=== PATIENT | male | born 1990 | race Caucasian/White ===

== ENCOUNTER 2019-08-18 23:29 | Emergency (ER) | payer BC ==
[2019-08-18 23:36] VITALS: RESP 18; TEMP 97.8
[2019-08-18] MEDS ORDERED: Acetaminophen-Codeine 300-30mg TAB PO STA (23:49)
[2019-08-18] MEDS ORDERED: CYCLOBENZAPRINE 10 MG TAB PO STA (23:49)
[2019-08-18] MEDS ORDERED: CYCLOBENZAPRINE 10MG STARTER 3 TAB BTL PO STA (23:49)
[2019-08-18] MEDS ORDERED: ACET/COD 300 MG/30 MG STARTER PACK 6 TAB BTL PO STA (23:49)
--- NOTE | 2019-08-19 00:08 | XR ---
EXAMINATION TYPE: XR cervical spine comp DATE OF EXAM: 08/19/2019 COMPARISON: NONE HISTORY: Neck pain TECHNIQUE: 5 views FINDINGS: Cervical vertebra have normal alignment. There is mild narrowing at C5-6 disc space. Employee Counselor ior elements are intact. Atlantoaxial facet joint is normal. There are no cervical ribs. Neuroforamin a are widely patent. IMPRESSION: Mild degenerative disc changes C5-6. No fracture seen.
--- NOTE | 2019-08-19 00:30 | ED ---
General Adult HPI - General Chief complaint: Neck Pain/Injury Stated complaint: Neck Pain Time Seen by Provider: 08/18/19 23:38 Source: patient, RN notes reviewed, old records reviewed Mode of arrival: ambulatory Limitations: no limitations - History of Present Illness Initial comments: 29-year-old male patient with seafood approximately 2 weeks of right paracervical neck pain. Patient reports that he woke up after sleeping in his right paracervical neck region was tight and painful.. Reports it has been painful since. He describes on the right side. Denies any midline pain. Denies any falls or trauma. Denies any fevers or chills. Does report some muscle spasm and tightness. Denies any radiation. Reports he has some local paresthesias at the site of discomfort but denies any paresthesias going down arms. Denies any weakness. Systemic: Pt denies fatigue, fever/chills, rash. Pt denies weakness, night sweats, weight loss. Neuro: Pt denies headache, visual disturbances, syncope or pre-syncope. HEENT: Pt denies ocular discharge or irritation, otalgia, rhinorrhea, pharyngitis or notable lymphadenopathy. Cardiopulmonary: Pt denies chest pain, SOB, heart palpitations, dyspnea on exertion. Abdominal/GI: Pt denies abdominal pain, n/v/d. : Pt denies dysuria, burning w/ urination, frequency/urgency. Denies new onset urinary or bowel incontinence. MSK: Pt denies myalgia, loss of strength or function in extremities. Neuro: Pt denies new onset weakness. - Related Data Previous Rx's Medication Instructions Recorded Cyclobenzaprine [Flexeril] 1 - 2 tab PO TID #20 tablet 08/19/19 Allergies Allergy/AdvReac Type Severity Reaction Status Date / Time No Known Allergies Allergy Verified 08/18/19 23:36 Review of Systems ROS Statement: Those systems with pertinent positive or pertinent negative responses have been documented in the HPI. ROS Other: All systems not noted in ROS Statement are negative. Past Medical History Past Medical History: No Reported History History of Any Multi-Drug Resistant Organisms: None Reported Past Surgical History: No Surgical Hx Reported Past Psychological History: Depression Smoking Status: Former smoker Past Alcohol Use History: None Reported Past Drug Use History: Marijuana General Exam - General Exam Comments Initial Comments: Constitutional: NAD, AOX3, Pt has pleasant affect. HEENT: NC/AT, trachea midline, neck supple, no lymphadenopathy. Posterior pharynx non erythematous, without exudates. External ears appear normal, without discharge. Mucous membranes moist. Eyes PERRLA, EOM intact. There is no scleral icterus. No pallor noted. Cardiopulmonary: RRR, no murmurs, rubs or gallops, no JVD noted. Lungs CTAB in anterior and posterior lang. No peripheral edema. Abdominal exam: Abdomen soft and non-distended. Abdomen non-tender to palpation in all 4 quadrants. Bowel sounds active in LLQ. No hepatosplenomegaly. No ecchymosis Neuro: CN II-XII intact. No nuchal rigidity. No raccon eyes, no mckinney sign, no hemotympanum. No midline cervical spinal tenderness. Right paracervical region mildly tender, no skin changes. Kernig's and Brudzinski's negative. MSK: No posterior calf tenderness bilaterally, homans sign negative bilaterally. Posterior tibialis and radial pulse +2 bilaterally. Sensation intact in upper and lower extremities. Full active ROM in upper and lower extremities, 5/5 stregnth. Limitations: no limitations Course Vital Signs 08/18/19 23:33 Temperature 97.8 F Pulse Rate 86 Respiratory 18 Rate Blood Pressure 118/81 O2 Sat by Pulse 98 Oximetry Medical Decision Making - Medical Decision Making 29-year-old male patient with seafood approximately 2 weeks of right paracervical neck pain. Patient reports that he woke up after sleeping in his right paracervical neck region was tight and painful.. Reports it has been painful since. He describes on the right side. Denies any midline pain. Denies any falls or trauma. Denies any fevers or chills. Does report some muscle spasm and tightness. Denies any radiation. Reports he has some local paresthesias at the site of discomfort but denies any paresthesias going down arms. Denies any weakness. Patient vital stable, afebrile. Physical exam despite a pressure. A mildly tender, no meningeal signs. Plain film of cervical spine displayed mild degenerative disc changes C5-C6 no fracture seen. Patient was administered analgesia and muscle relaxer is feeling some improvement. Patient was discharged with follow-up with primary care provider and orthopedic onset of symptoms worsen. Case discussed with Dr. Wisdom. Disposition Clinical Impression: Strain of neck muscle Disposition: HOME SELF-CARE Condition: Stable Instructions (If sedation given, give patient instructions): Cervical Sprain (ED) Additional Instructions: Follow-up with primary care provider tomorrow. Follow-up orthopedic consult if symptoms persist. Return to ER if condition worsens. Prescriptions: Cyclobenzaprine [Flexeril] 1 - 2 tab PO TID #20 tablet Is patient prescribed a controlled substance at d/c from ED?: No Referrals: Ovidio Harrison MD [Primary Care Provider] - 1-2 days Alec Gracia MD [Medical Doctor] - 1-2 days
[2019-08-19 00:39] VITALS: BP 120/79; PULSE 87
== END 2019-08-19 00:39 | disposition home or self-care (01) ==
LOC: EC 23:29
DX: S16.1XXA Strain of muscle, fascia and tendon at neck level, initial encounter (principal); M47.812 Spondylosis without myelopathy or radiculopathy, cervical region; Z87.891 Personal history of nicotine dependence; X58.XXXA Exposure to other specified factors, initial encounter; Y93.84 Activity, sleeping
CPT/HCPCS: 72050; 99284

== ENCOUNTER 2020-02-07 20:57 | Emergency (ER) | payer BC ==
[2020-02-07 21:08] VITALS: TEMP 97.8
[2020-02-07] MEDS ORDERED: BUPIVACAINE (PF) 0.5% 30 ML VIAL SQ STA (21:33)
[2020-02-07] MEDS ORDERED: ACET/COD 300 MG/30 MG STARTER PACK 6 TAB BTL PO STA (21:37)
[2020-02-07] MEDS ORDERED: AMOXIC-POT CLAV 875-125MG 1 EACH TAB PO STA (21:37)
--- NOTE | 2020-02-07 21:38 | ED ---
ENT HPI - General Chief complaint: Dental/Oral Stated complaint: Dental Pain Time Seen by Provider: 02/07/20 21:13 Source: patient Mode of arrival: ambulatory Limitations: no limitations - History of Present Illness Initial comments: patient is a 29-year-old male presenting to emergency Department with a chief complaint of dental pain. Patient reports the pain isn't worse since 10 PM last night. Patient states he does see a dentist but has not been able to get in on time. Patient reports the pain is on tooth #21. Patient denies any facial swelling, discharge or signs of an abscess in the oral cavity. Patient denies taking any antibiotics. Denies any night sweats fevers or chills. Denies any odontophagia, dysphagia or drooling. - Related Data Previous Rx's Medication Instructions Recorded Cyclobenzaprine [Flexeril] 1 - 2 tab PO TID #20 tablet 08/19/19 Amoxicillin/Potassium Clav 1 tab PO Q12HR #20 tab 02/07/20 [Augmentin 875-125 Tablet] Allergies Allergy/AdvReac Type Severity Reaction Status Date / Time No Known Allergies Allergy Verified 02/07/20 21:08 Review of Systems ROS Statement: Those systems with pertinent positive or pertinent negative responses have been documented in the HPI. ROS Other: All systems not noted in ROS Statement are negative. Past Medical History Past Medical History: No Reported History History of Any Multi-Drug Resistant Organisms: None Reported Past Surgical History: No Surgical Hx Reported Past Psychological History: Depression Smoking Status: Former smoker Past Alcohol Use History: None Reported Past Drug Use History: Marijuana General Exam Limitations: no limitations General appearance: alert, in no apparent distress Head exam: Present: atraumatic, normocephalic, normal inspection Eye exam: Present: normal appearance, PERRL, EOMI Pupils: Present: normal accommodation ENT exam: Present: normal exam, mucous membranes moist, TM's normal bilaterally, normal external ear exam. Absent: normal oropharynx (Poor dentition. Cavity in tooth #21. No signs of a periapical abscess.) Neck exam: Present: normal inspection, full ROM. Absent: tenderness Respiratory exam: Present: normal lung sounds bilaterally. Absent: respiratory distress, wheezes, rales Cardiovascular Exam: Present: regular rate, normal rhythm, normal heart sounds Extremities exam: Present: normal inspection, full ROM. Absent: tenderness Back exam: Present: normal inspection, full ROM. Absent: tenderness Neurological exam: Present: alert, oriented X3 Psychiatric exam: Present: normal affect, normal mood Skin exam: Present: warm, dry, intact, normal color Course Vital Signs 02/07/20 02/07/20 21:06 22:30 Temperature 97.8 F Pulse Rate 91 69 Respiratory 18 16 Rate Blood Pressure 131/78 122/87 O2 Sat by Pulse 99 96 Oximetry Procedures - Nerve Block Consent Obtained: verbal consent Local Anesthetic Used: Marcaine 0.5% Amount of anesthesia used: 3 Side: left Intraoral Nerve Block: mental Procedure Successful: Yes Complications: none Patient Tolerated Procedure: well, no complications Medical Decision Making - Medical Decision Making Patient is a 29-year-old male presenting to the emergency room a chief complaint of dental pain. On exam there is no signs of periapical abscess but he does have cavity in tooth #21 with the pain is located. Patient given a Tylenol 3 starter pack and advised not to drive or operative heavy machinery when taking medication. Started on Augmentin. Mental nerve block performed and patient tolerated procedure well. Strict return parameters were thoroughly discussed patient was understanding and agreeable. He was advised to follow with a dentist. Case discussed with physician. Disposition Clinical Impression: Pain, dental Disposition: HOME SELF-CARE Condition: Stable Instructions (If sedation given, give patient instructions): Toothache (ED) Additional Instructions: Take prescribed medication as directed. Do not drive or operative machinery whe n taking the Tylenol 3. Follow up with a dentist. Prescriptions: Amoxicillin/Potassium Clav [Augmentin 875-125 Tablet] 1 tab PO Q12HR #20 tab Is patient prescribed a controlled substance at d/c from ED?: No Referrals: Ovidio Harrison MD [Primary Care Provider] - 1-2 days Time of Disposition: 21:38
[2020-02-07 22:33] VITALS: BP 122/87; PULSE 69; RESP 16
[2020-02-07] MEDS ORDERED: LIDOCAINE 1% INJ 10MG/ML (20 ML MDV) SQ ONE (22:34)
== END 2020-02-07 22:44 | disposition home or self-care (01) ==
LOC: EC 20:57
DX: K02.9 Dental caries, unspecified (principal); K00.7 Teething syndrome; Z87.891 Personal history of nicotine dependence
CPT/HCPCS: 64450; 99282; J2001

== ENCOUNTER 2021-12-02 23:51 | Emergency (ER) | payer BC, OTHER ==
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
[2021-12-03] MEDS ORDERED: IBUPROFEN 600 MG TAB PO STA (02:53)
[2021-12-03] MEDS ORDERED: HYDROcodone/APAP 5-325MG 1 EACH TAB PO STA (02:53)
[2021-12-03 03:04] VITALS: BP 131/94; PULSE 85; RESP 18; TEMP 98.3
--- NOTE | 2021-12-03 04:45 | XR ---
EXAM: XR Right Hand Complete, 3 or More Views CLINICAL HISTORY: ITS.REASON XR Reason: injury TECHNIQUE: Frontal, lateral and oblique views of the right hand. COMPARISON: No relevant prior studies available. FINDINGS: Bones/joints: Fifth digit distal radial and palmar angulated acute fracture. No dislocation. Soft tissues: Soft tissue swelling along the medial aspect of the hand at the level of the fifth digit. No radiopaque foreign body. IMPRESSION: Distal fifth metacarpal fracture.
== END 2021-12-03 03:04 | disposition home or self-care (01) ==
LOC: EC 23:51
DX: S62.306A Unspecified fracture of fifth metacarpal bone, right hand, initial encounter for closed fracture (principal); F41.9 Anxiety disorder, unspecified; F32.A Depression, unspecified; F12.90 Cannabis use, unspecified, uncomplicated; Z87.891 Personal history of nicotine dependence; W22.8XXA Striking against or struck by other objects, initial encounter
CPT/HCPCS: 29125; 99284